=== PATIENT | male | born 1990 | race Two or more races ===

== ENCOUNTER 2025-04-19 09:33 | Emergency (ER) | payer MEDICAID, SELFPAY ==
[2025-04-19 09:42] VITALS: BP 123/75; PULSE 68; RESP 18; TEMP 37.1; O2SAT 98; BMI 26.2
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
== END 2025-04-19 10:50 | disposition home or self-care (01) ==
PROVIDERS: Emergency Provider Emergency Medicine
DX: S01.111D Laceration without foreign body of right eyelid and periocular area, subsequent encounter (principal); S01.01XD Laceration without foreign body of scalp, subsequent encounter; V89.2XXD Person injured in unspecified motor-vehicle accident, traffic, subsequent encounter
CPT/HCPCS: 99282